=== PATIENT | male | born 1995 | race Two or more races ===

== ENCOUNTER → 2018-12-24 | Emergency (ER) | payer OTHER ==
[~2018-12-24] VITALS: Ht 180.3 cm; Wt 80.3 kg
[~2018-12-24] MED LIST: ALLERGY RELIEF10 M3 PO; ANTI-ITCH28 GM TOP; CEFADROXIL500 MG PO; INTESTINEX680 M1 PO; KEFLEX500 MG PO
== END | disposition home or self-care (01) ==
LOC: ER 01:43
DX: L03.116 Cellulitis of left lower limb (principal)